=== PATIENT | male | born 1940 | race Caucasian/White ===

== ENCOUNTER 2020-12-25 10:38 | Inpatient (IN) | payer OTHER ==
--- OUTSIDE RECORDS SUMMARY | 2020-12-25 10:41 | XMS REPORT | Continuity of Care Document ---
:1940 Author Organization [facility] t Address [address] [place] [address] Care Team Providers Name Role Phone Jerry ZAMARRIPA, Madiha Primary Care Physician Gus ZAMARRIPA, N Attending Clinician Nirav Jensen Attending Clinician Bibi CHAN Attending Clinician MD GUS N Attending Clinician Unavailable Provider Attending Clinician Unavailable Tommy ZAMARRIPA, G. Attending Clinician Lab, Fam Pob I Attending Clinician Unavailable GUS Admitting Clinician Unavailable MD GUS N Admitting Clinician Unavailable Payers Payer Name Policy Type Policy Effective Date Expiration Date Sour ce Number MEDICAREMEDICARE PART [id number] 2007 Ever [place] A AND 00:00:00 Taoist VilypsagJP240/07/2007- [place] AETNAAETNA [id number] [facility] 00:00:00 Taoist [id number]/ 07/2000-PresentIndemni ty Problems Condition Condition Condition Status Onset Resolution Last Treating Co mments Source Name Details Category Date Date Treatment Clinician Date Osteoarthr Osteoarthr Disease Active 2021-0 [place] [facility] itis of 10-15 [facility] right hip right hip 00:00: st 00 Bleeding Bleeding Disease Active [place] gastric gastric Methodi ulcer ulcer st Colon Colon Disease Active [employer] polyps polyps Methodi st Esophageal Esophageal Disease Active [facility]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 st reaction 00 s to drug codeine DA Active [facility] 10-23 [place] 00:00: [facility] 00 [facility] Family History Family Member Diagnosis Comments Start Date Stop Date Source Natural brother Cancer [facility] ethodi Natural brother Colon cancer [facility] Natural father Heart attack [facility] Social History Social Habit Start Date Stop Date Quantity Comments Source Tobacco use and 2020-10-22 2020-10-22 Never used [facility] ethodist exposure 00:00:00 00:00:00 Alcohol intake 2020-10-22 2020-10-22 [facility]00 non-drinker of alcohol (finding) Sex Ass[birth year] At [birth year] [facility]00 Smoking Status Start Date Stop Date Source Never smoker [facility] t Medications Ordered Filled Start Stop Current Ordering Indication Dosage Frequency Signature Comments Components Source Medication Medication Date Date Medication? Clinician (SIG) Name Name INFLIXIMAB 2020- No Q30D Infuse [place] (REMICADE 10-16 into a Methodi IV) 11:58: 00:[address] 21 :00 catheter every 30 (thirty) days. Next dose 10/15/2020 ascorbic 2020-2020- No 1000mg QD Take 1,000 Elizabeth acid, 10-16-14 mg by Methodi vitamin C, 11:58: 00:[address] (ascorbic 21 :00 daily. acid with sandra hips) 500 MG tablet acetaminoph Yes 650mg Q8H Take 650 [place] en ER 4-14 mg by Method[facility] (Tylenol 8 11:58: mouth st Hour) 650 20 every 8 MG 8 hr (eight) tablet hours as needed for mild pain or moderate pain. multivitami Yes 1{tbl} QD Take 1 [place] with 4-14 tablet by [facility] minerals 11:58: mouth st tablet 20 daily. vitamin E Yes 400U QD Take 400 [place] 400 UNIT 4-14 Units by Methodi capsule 11:58: mouth st 20 daily. methotrexat Yes Q7D Take by Pedro ramirez e 2.5 MG 4-14 mouth once Metho di tablet 11:58: a week. st 19 Takes 4 tablets of 2.5mg Wednesday evening omega Yes 1{capsu QD Take 1 Elizabeth 3-dha-epa-f 4-14 le} capsule by Il aniyah miles oil 11:58: mouth st (FISH OIL) 19 every 1,000 mg morning. (120 mg-180 mg) capsule traMADoL Yes 50mg Q6H Take 50 mg Pedro ramirez (ULTRAM) 50 2-21 by mouth Meth joelle mg tablet 00:00: every 6 st 00 (six) hours as needed. sulfaSALAzi Yes 1500mg Q.5D Take 1,500 Elizabeth ne 2-15 mg by Methodi (AZULFIDINE 00:00: mouth 2 st ) 500 mg 00 (two) tablet times a day. amLODIPine 2020- No TAKE 1 [place] (NORVASC) 5 10-25 TABLET BY Il thodi mg tablet 00:00: 00:[address] 00 :00 EVERY DAY IN THE MORNING rosuvastati 2020- No QD every [place] (CRESTOR) 10-2505 evening. Met hodi 10 MG 00:00: 00:00 st tablet 00 :00 Immunizations Ordered Immunization Filled Immunization Date Status Commen ts Source Name Name [place] COVID-19 MRNA 2020-08-12 Completed [place] VACCINATION 00:00:00 Taoist [place] COVID-19 MRNA 2020-07-22 Completed [place] VACCINATION 00:00:00 Taoist Vital Signs Vital Name Observation Time Observation Value Comments Source Body temperature 2020-10-16 08:00:00 37.5 Sandrine Daryl Tiwari Systolic blood 2020-10-16 07:15:51 130 mm[Hg] Darylto n Taoist pressure Diastolic blood 2020-10-16 07:15:51 60 mm[Hg] [place]ary[place] on Taoist pressure Heart rate 2020-10-16 07:15:51 84 /min Glenn Tiwari Respiratory rate 2020-10-16 07:15:51 19 /min Daryl Tiwari Oxygen saturation in 2020-10-16 07:15:51 91 /min Glenn Tiwari Arterial blood by Pulse oximetry Body height 2020-10-15 06:32:00 170.2 cm Glenn Tiwari Body weight 2020-10-15 06:32:00 88.168 kg Glenn Tiwari BMI 2020-10-15 06:32:00 30.44 kg/m2 Glenn Tiwari Procedures Procedure Date / Time Performed Performing Clinician Sourc e HEMOGLOBIN & HEMATOCRIT 2020-10-16 04:30:00 Dorcas Toney BASIC METABOLIC PANEL 2020-10-16 04:00:00 Dorcas Toney ESTIMATED GFR 2020-10-16 04:00:00 Dorcas Toney XR PELVIS 1 OR 2 VW 2020-10-15 11:04:00 Dorcas Toney POC GLUCOSE 2020-10-15 10:41:00 Dorcas Toney SURGICAL PATHOLOGY 2020-10-15 10:24:00 Dorcas Toney on Taoist REQUEST OR [place] > 1 HOUR 2020-10-15 09:50:00 Dorcas Toney XR PELVIS 1 OR 2 VW 2020-10-15 09:34:00 Dorcas Toney CA AN ELECTIVE 2020-10-15 08:55:28 Pk Jensen ENDOTRACHEAL AIRWAY R ARTHROPLASTY, HIP, TOTAL 2020-10-15 07:40:00 Dorcas Toney TRACHEOSTOMY 2020-10-15 07:40:00 Norm Franklin POC GLUCOSE 2020-10-15 07:14:00 Dorcas Toney ABO/RH 2020-10-15 07:00:00 Dorcas Toney COVID-19 QUALITATIVE PCR 2020-10-10 10:43:00 Dorcas Toney URINE CULTURE 2020-09-24 16:30:00 Dian Mtz Met hodist URINALYSIS SCREEN AND 2020-09-24 16:30:00 Dian Mtz on Taoist MICROSCOPY, WITH REFLEX TO CULTURE ECG PRE/POST OP 2020-09-24 16:03:39 Dian Mtz Met [facility]odist TYPE AND SCREEN 2020-09-24 15:43:00 Dian Mtz Met [facility]odist HEMOGLOBIN A1C 2020-09-24 15:43:00 Dian Mtz Met [facility]odist COMPREHENSIVE METABOLIC 2020-09-24 15:43:00 Dian Mtz Taoist PANEL HC COMPLETE BLD COUNT 2020-09-24 15:43:00 Dian Mtz Taoist W/AUTO DIFF ESTIMATED GFR 2020-09-24 15:43:00 Dian Mtz Met hodist Plan of Care Planned Activity Planned Date Details Comments Source Future Scheduled 2021-02-02 INFLUENZA VACCINE Henry welch Taoist Test 00:00:00 [code = INFLUENZA VACCINE] Future Scheduled 2007 65+ PNEUMOCOCCAL Elizabeth Taoist Test 00:00:00 VACCINE (1 of 1 - PPSV23) [code = 65+ PNEUMOCOCCAL VACCINE (1 of 1 - PPSV23)] Future Scheduled 1992 SHINGLES VACCINES (#1) Noa myles Taoist Test 00:00:00 [code = SHINGLES VACCINES (#1)] Future Scheduled 1960 Hepatitis C screening [facility] Taoist Test 00:00:00 (procedure) [code = 177537405] Encounters Start End Encounter Admission Attending Care Care Encounter Source Date/Time Date/Time Type Type Clinicians Facility Department ID 2020-10-15 2020-10-16 [id number] [place] 00:00:00 00:00:00 [place] [address] 2020-10-10 2020-10-10 [id number] [place] 00:00:00 00:00:00 UGONNA 902 Method i 2020-09-24 2020-09-24 [id number] [employer] [place] 00:00:00 00:00:00 UGONNA 660 Method i 2020-09-06 2020-09-06 Outpatient TOMMY, [facility] [id number] [employer] [place] 00:00:00 00:00:00 NORM 015 Method i 2020-08-12 2020-08-12 Outpatient [facility] [id number] [employer] [place] 00:00:00 00:00:00 308 Method i 2020-07-22 2020-07-22 Outpatient [facility] [id number] [employer] [place] 00:00:00 00:00:00 353 Method i 2020-06-25 2020-06-25 Laboratory Lab, [facility] [id number] 15:55:48 16:17:07 Only Fam Pob I Health [id number] [facility] [id number] Professio [phone] nal 044 [address] One Results Test Description Test Time Test Comments Results Result [facility] e Comments OR [place] > I Hour 2020-11-19 [facility] 14:52:[address] 11/19/2020 2:55 PM CDT EXAMINATI ON: OR [place] > 1 HOURC-arm fluoroscopy was requested in OR. Location: OPC19 - OR 2 Procedure: ANTERIOR TOTAL ARTHROPLASTY, RIGHT HIP Start Time: 0740 End Time: 0950 Fluoro Time: 1 MIN 21 SECS Dose (mGy): 16.27 mGy Tech(s): ACIMPRESSION:Intra operative fluoroscopic images. Radiologist was not present during the examination.Separa te operative report will be issued by the physician performing the procedure.[id number] Surgical pathology request 2020-10-18 09:04:44 Test Item Value Reference Range Interpretation Comme nts Case number (test code = 8534029) [id number] Surgical pathology report (test code = See link below for PDF Lab R eport 4113) Result status (test code = 2847074) This is Final Report for [id number] [facility] 2 [id number] 11:13:30Hm Interface, Radiology Results Incoming - 10/15/2020 11:16 AM CDTFormatting of this note might be di fferent from the original.EXAMINATION: XR PELVIS 1 OR 2 VWCLINICAL HISTORY: Post operativeCOMPARISON: 1 hour earlierTECHNIQUE:Frontal pelvic radiograph is reviewed.IMPRESSION:Interval completion right hip bipolar hemiarthroplasty. Hardware is appropriately positioned. Right pelvic extraperitoneal gas medial to the acetabulum and small amount of postoperative gas surrounding the prosthesis more laterally are again noted.[id number] [id number] 08:55:28Pk Jensen 10/15/2020 9:03 [address] Location: OR Performed by: anesthesiologistAuthorized by: Pk Jensen Urgency: ElectiveDifficult Airway: Yes (See comments) Preoxygenated with 100% O2: Yes C-spine Precautions Maintained Throughout: Yes Mask Ventilation: Not attempt edFinal Airway Type: Endotracheal airwayFinal Endotracheal Airway: ETTCuffed: Yes Technique Used: Awake intubationDevices/Methods Used in Placement: Intubating styletInsertion Site: OralLaryngoscope Blade/Videolaryngoscope Blade Size: 4ETT Size (mm): 7.0Placement Verified by: CO2 detection anddirect visualization Rapid Sequence Induction (RSI): No Modified RSI: No Number of Attempts at Approach: [address] secondary to 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 ENT at bedside in case needed for tracheosstomy. Prepared for nasal awake fiberoptic intubation with topical local anesthetic to nasopharynx and oropharynx. Once appropriately topical anesthetic applied, proceeded to easily pass Glidescopesize 4 with patient under minimal sedation (attempted before even trying nasal fiberoptic). With grade one visualization, patient given propofol bolus prior to passing tube ET tube succesfully under dir ect visualization. Manual ventilation never attempted as patient was awake and breathing spontaneously during procedure.Glenn TiwariCOVID-19 qualitative [id number] 15:28:43 Test Item Value Reference Range Interpretation Comments Interpretation (test Negative results do code = 5025431) not preclude 2019-nCoV infection and should not be used as the sole basis for treatment or other patient management decisions. Negative results must be combined with clinical observations, patient history, and epidemiological information. COVID-19 qualitative Not-Detected Not-Detected PCR result (test code = 32679-0) COVID-19 qualitative See link below for C ase Number: PCR (test code = PDF Lab Report [id number]) Glenn OdonnellAnblkxyrcWXQN-VwF-5 (COVID-19) RNA [Presence] in Respiratory specimen by ARNOL with probe [id number] 15:28:10 Test Item Value Reference Range Interpretation Comments SARS-CoV-2 (COVID-19) RNA Not detected Not-Detected [Presence] in Respiratory specimen by ARNOL with probe detection (test code = 70886-4) ECG Pre/Post [id number] 02:24:08 Test Item Value Reference Range Interpretation Comments Ventricular rate (test 75 code = 253) Atrial rate (test code 75 = 255) CA interval (test code 156 = 266) QRSD interval (test 88 code = 260) QT interval (test code 380 = 264) QTC interval (test code 424 = 265) P axis 1 (test code = 51 267) QRS axis 1 (test code = -12 268) T wave axis (test code 0 = 270) EKG impression (test Normal sinus code = 273) rhythm-Normal ECG-In automated comparison with ECG of 12-APR-2017 09:40,-No significant change was found- lGenn TiwariUrine [id number] 18:19:18 Test Item Value Reference Range Interpretation Comments Urine culture (test SEE COMMENT Bacteriu iram screen code = 6709030) negative. Glenn Tiwari
[2020-12-25 11:38] LABS: Absolute Lymphocytes (CBC) 0.6 K/uL (0.7-4.9); Basophils % 0.2 % (0-1.3); Hematocrit 37.9 % (39.6-49.0); Lymphocytes % 3.7 % (15.3-44.8); MPV 9.4 fL (7.6-11.3); RBC Red Blood Cell Count 4.04 M/uL (4.33-5.43)
[2020-12-25 11:58] LABS: Albumin 3.3 g/dL (3.4-5.0); Bilirubin Direct 0.3 mg/dL (0-0.2); Bilirubin Total 0.8 mg/dL (0.2-1.0); Protein, Total 7.6 g/dL (6.4-8.2)
--- NOTE | 2020-12-25 12:26 | RAD REPORT ---
EXAM DESCRIPTION: RAD - Chest Single View - 12/25/2020 12:21 pm CLINICAL HISTORY: FEVER Chest pain. COMPARISON: CHEST PA AND LAT 2 VIEW dated 12/08/2011 FINDINGS: Portable technique limits examination quality. The lungs are grossly clear. The heart is normal in size. No displaced fractures. IMPRESSION: No acute intrathoracic process suspected.
[2020-12-25 12:38] LABS: Blood Morphology Comment NOT SEEN (NOT SEEN); Platelet Estimate ADEQ; White Blood Cell Scan OK (OK)
--- NOTE | 2020-12-25 12:52 | RAD REPORT ---
EXAM DESCRIPTION: CT - Abdomen Pelvis W Contrast - 12/25/2020 12:29 pm CLINICAL HISTORY: Abdominal pain/fever COMPARISON: none. TECHNIQUE: Computed axial tomography of the abdomen pelvis was obtained. 100 cc Isovue-300 was admin istered intravenously. Oral contrast was not requested which limits evaluation of bowel. All CT scans are performed using dose optimization technique as appropriate and may include automated exposure control or mA/KV adjustment according to patient size. FINDINGS: The liver, spleen, pancreas, adrenal and left kidney appear unremarkable. Small right urmila l cortical and parapelvic cysts. There is no evidence of diverticulitis. The prostate gland is markedly enlarged. Moderate anterior subluxation L5 on S1. Ankylosing spondylitis involves pelvis and spine. The proximal and mid appendix are normal. The distal appendix is dilated and fluid-filled measuring 1 3 millimeters and containing calcification. No stranding within the adjacent fat. The appendix extend s medially and superiorly from the cecum A gallstone is seen. No gallbladder wall thickening IMPRESSION: The distal appendix is dilated and fluid-filled containing calcification. This has the a ppearance of a mucocele. Cholelithiasis without evidence of cholecystitis
[2020-12-25 13:51] LABS: Urine Blood 2+ (Negative); Urine Glucose Negative (Negative); Urine Protein 2+ (Negative); Urine Specific Gravity 1.015 (1.005-1.030); Urine pH 5.5 (5.0-7.0)
--- NOTE | 2020-12-25 14:02 | EDPHYS ---
Physician Documentation [facility] Name: Oleg Marie Age: 80 yrs Sex: Male : 1940 Arrival Date: 12/25/2020 Time: 10:41 Bed 2 Private MD: Emily Edwards C ED Physician Moncho Nj HPI: 12/25 11:45 This 80 yrs old Male presents to ER via Ambulatory with complaints of Fever. rn 11:45 The patient reports fever, that was measured at 102.3 degrees Fahrenheit. Onset: The rn symptoms/episode began/occurred yesterday. Modifying factors: there are no obvious modifying factors. Associated signs and symptoms: Pertinent positives: chills, Pertinent negatives: abdominal pain, chest pain, cough, diarrhea, headache, hemoptysis, runny nose, shortness of breath, swelling, vomiting. Severity of symptoms: At their worst the symptoms were mild in the emergency department the symptoms are unchanged. The patient has not experienced similar symptoms in the past. Sent by Dr. Edwards, for fever of unknown origin, concerned because takes Remicade, patient only complaints of sneezing and hiccups. No chest pain/sob/abd pain/vomiting/diarrhea. COVID vaccinated at beginning of year. . Historical: - Allergies: 11: Tape; tw2 11: Codeine; hyper; tw2 - Home Meds: 11: Fish Oil 1,000 mg oral cap [Active]; sulfasalazine 500 mg Oral tab 1 tab 4 times per tw2 day [Active]; methotrexate sodium 2.5 mg Oral tab 4 tabs once wkly [Active]; remicaid inj, every 6 weeks [Active]; - PMHx: 11: BPH; ankylosing spondylitis; tw2 - PSHx: 11:01 Tonsillectomy; hip replacement, october 2020; tw2 - Immunization history:: Adult Immunizations Client reports receiving the 2nd dose of the Covid vaccine. - Social history:: Smoking status: . - Family history:: not pertinent. - Hospitalizations: : No recent hospitalization is reported. 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 Exam: 11:45 Constitutional: This is a well developed, well nourished patient who is awake, alert, rn and in no acute distress. Head/Face: Normocephalic, atraumatic. Eyes: Periorbital areas with no swelling, redness, or edema. ENT: MMM, no stridor Cardiovascular: Regular rate and rhythm. No pulse deficits. Respiratory: No increased work of breathing, no retractions or nasal flaring. Abdomen/GI: Soft, non-tender Skin: Warm, dry MS/ Extremity: Pulses equal, no cyanosis. Neuro: Awake and alert, GCS 15, oriented to person, place, time, and situation. Cranial nerves II-XII grossly intact. Motor strength 5/5 in all extremities. Sensory grossly intact. Cerebellar exam normal. Normal gait. Vital Signs: 10:55 BP 139 / 56; Pulse 98; Resp 18; Temp 102.3(O); Pulse Ox 95% on R/A; Weight 90.72 kg tw2 (R); Height 5 ft. 7 in. (170.18 cm); 12:04 BP 134 / 54; Pulse 88; Resp 16; Pulse Ox 96% ; sv 13:46 BP 146 / 82; Pulse 84; Resp 15; Temp 102.8(O); Pulse Ox 98% on R/A; hb 14:56 BP 123 / 53; Pulse 80; Resp 15; Temp 101.2(O); Pulse Ox 97% ; hb 10:55 Body Mass Index 31.32 (90.72 kg, 170.18 cm) tw2 MDM: 11:04 Patient medically screened. rn 14:00 Differential diagnosis: viral Infection, bacterial infection, bronchitis, pneumonia rn UTI. Data reviewed: vital signs, nurses notes, lab test result(s), radiologic studies, CT scan, plain films, and as a result, I will admit patient. Counseling: I had a detailed discussion with the patient and/or guardian regarding: the historical points, exam findings, and any diagnostic results supporting the discharge/admit diagnosis, lab results, radiology results, the need for further work-up and treatment in the hospital. Response to treatment: the patient's symptoms have mildly improved after treatment, and as a result, I will admit patient. Admission orders: after a detailed discussion of the patient's condition and case, the admit orders are written by me. ED course: Pt with UTI, 17k WBC, elevated procal, will admit to Dr. Edwards for UTI/fever. . 12/25 11:14 Order name: CBC with Diff 12/25 11:14 Order name: Basic Metabolic Panel 12/25 11:14 Order name: Urine Culture 12/25 11:14 Order name: Urine Microscopic Only 12/25 11:14 Order name: COVID-19 : Document "Date of Symptom Onset" if Symptomatic. 12/25 11:14 Order name: Blood Culture Adult (2) 12/25 11:14 Order name: Procalcitonin 12/25 11:14 Order name: Hepatic Function 12/25 11:14 Order name: Lipase 12/25 11:14 Order name: Flu 12/25 11:30 Order name: [facility] 12/25 11:39 Order name: CBC with Automated Diff; Complete Time: 12:51 [facility] 12/25 11:58 Order name: Basic Metabolic Panel; Complete Time: 12:51 [facility] 12/25 11:58 Order name: Liver (Hepatic) Function; Complete Time: 12:51 [facility] 12/25 11:14 Order name: IV Start; Complete Time: 11:29 12/25 11:14 Order name: XRAY Chest (1 view) 12/25 11:14 Order name: CT Abd/Pelvis - IV Contrast Only 12/25 11:14 Order name: Labs collected and sent; Complete Time: 11:29 12/25 11:58 Order name: Lipase; Complete Time: 12:51 [facility] 12/25 12:10 Order name: Influenza Screen (A ; Complete Time: 12:51 [facility] 12/25 12:14 Order name: Procalcitonin; Complete Time: 12:51 EDTX 12/25 12:25 Order name: SARS-COV-2 RT PCR; Complete Time: 12:51 EDMS 12/25 12:27 Order name: RAD; Complete Time: 12:51 EDMS 12/25 12:39 Order name: CBC Smear Scan; Complete Time: 12:51 EDMS 12/25 12:52 Order name: CT; Complete Time: 13:11 EDMS 12/25 13:52 Order name: Urine Dipstick-Ancillary; Complete Time: 13:59 EDMS 12/25 14:52 Order name: Urine Microscopic Only EDMS Administered Medications: 13:50 Drug: Tylenol 1000 mg Route: PO; hb 14:40 Follow up: Response: No adverse reaction hb 14:40 Drug: Rocephin (cefTRIAXone) 1 grams Route: IV; Rate: calculated rate; Site: left hb antecubital; 14:41 Follow up: IV Status: Completed infusion; IV Intake: 10ml hb 15:00 Follow up: Response: No adverse reaction hb Disposition: 12/25/20 14:02 Hospitalization ordered by Emily Edwarsd for Inpatient Admission. Preliminary diagnosis are Urinary tract infection, site not specified, Fever, unspecified. - Bed requested for Telemetry/MedSurg (Inpatient). - Status is Inpatient Admission. hb - Condition is Stable. - Problem is new. - Symptoms have improved. Signatures: Dispatcher [employer] Keri Lindsay RN RN dw Nieto, Roman, MD MD rn Baxter, Heather, RN RN hb Wise, Tara, RN RN tw2 Corrections: (The following items were deleted from the chart) 14:39 14:02 Hospitalization Ordered by Emily Edwards MD for Inpatient Admission. Preliminary dw diagnosis is Urinary tract infection, site not specified; Fever, unspecified. Bed requested for Telemetry/MedSurg (Inpatient). Status is Inpatient Admission. Condition is Stable. Problem is new. Symptoms have improved. rn 15:30 14:39 12/25/2020 14:02 Hospitalization Ordered by Emily Edwards MD for Inpatient Admission. hb Preliminary diagnosis is Urinary tract infection, site not specified; Fever, unspecified. Bed requested for Telemetry/MedSurg (Inpatient). Status is Inpatient Admission. Condition is Stable. Problem is new. Symptoms have improved. dw
--- NOTE | 2020-12-25 14:02 | ER ---
Nurse's Notes [facility] Name: Oleg Marie Age: 80 yrs Sex: Male : 1940 Arrival Date: 12/25/2020 Time: 10:41 Bed 2 Private MD: Emily Licea C Diagnosis: Urinary tract infection, site not specified;Fever, unspecified Presentation: 12/25 10:55 Chief complaint: Patient states: Dr. Licea sent me here. He said he wanted us to come tw2 over here and do some tests. I have sneezing and hiccups every 4 seconds since yesterday and all last night. i went to see dr. licea early in the weak with foggy head and headache. He did a CT scan and now he has this fever per spouse. Coronavirus screen: fever, Client presents with at least one sign or symptom that may indicate coronavirus-19. Standard/surgical mask placed on the client. Provider contacted for isolation considerations. Ebola Screen: Patient denies travel to an Ebola-affected area in the 21 days before illness onset. Initial Sepsis Screen: Does the patient meet any 2 criteria? No. Patient's initial sepsis screen is negative. Does the patient have a suspected source of infection? No. Patient's initial sepsis screen is negative. Risk Assessment: Do you want to hurt yourself or someone else? Patient reports no desire to harm self or others. Onset of symptoms was December 25, 2020. 10:55 Method Of Arrival: Ambulatory tw2 10:55 Acuity: REJI 3 tw2 Triage Assessment: 11:01 General: Appears in no apparent distress. well groomed, Behavior is calm, cooperative, tw2 appropriate for age. Pain: Denies pain. Historical: - Allergies: 11: Tape; tw2 11: Codeine; hyper; tw2 - Home Meds: 11: Fish Oil 1,000 mg oral cap [Active]; sulfasalazine 500 mg Oral tab 1 tab 4 times per tw2 day [Active]; methotrexate sodium 2.5 mg Oral tab 4 tabs once wkly [Active]; remicaid inj, every 6 weeks [Active]; - PMHx: 11: BPH; ankylosing spondylitis; tw2 - PSHx: 11: Tonsillectomy; hip replacement, october 2020; tw2 - Immunization history:: Adult Immunizations Client reports receiving the 2nd dose of the Covid vaccine. - Social history:: Smoking status: . - Family history:: not pertinent. - Hospitalizations: : No recent hospitalization is reported. Screenin:29 Abuse screen: Denies threats or abuse. Denies injuries from another. Nutritional hb screening: No deficits noted. Tuberculosis screening: No symptoms or risk factors identified. Fall Risk None identified. Assessment: 11:29 General: Appears in no apparent distress. Behavior is calm, cooperative. Pain: Denies hb pain. Neuro: Level of Consciousness is awake, alert, obeys commands, Oriented to person, place, time, situation. Cardiovascular: Patient's skin is warm and dry. Rhythm is regular. Respiratory: Respiratory effort is even, unlabored, Respiratory pattern is regular, symmetrical. GI: No signs and/or symptoms were reported involving the gastrointestinal system. : No signs and/or symptoms were reported regarding the genitourinary system. EENT: No signs and/or symptoms were reported regarding the EENT system. Derm: Skin is pink, warm \\T\\ dry. Musculoskeletal: No signs and/or symptoms reported regarding the musculoskeletal system. 12:38 Reassessment: Patient appears in no apparent distress at this time. Patient and/or hb family updated on plan of care and expected duration. Pain level reassessed. Patient is alert, oriented x 3, equal unlabored respirations, skin warm/dry/pink. 13:50 Reassessment: Patient appears in no apparent distress at this time. Patient and/or hb family updated on plan of care and expected duration. Pain level reassessed. Patient is alert, oriented x 3, equal unlabored respirations, skin warm/dry/pink. 14:30 Reassessment: Patient appears in no apparent distress at this time. Patient and/or hb family updated on plan of care and expected duration. Pain level reassessed. Patient is alert, oriented x 3, equal unlabored respirations, skin warm/dry/pink. 14:56 Reassessment: Attempted to call report to floor, receiving nurse unavailable at this hb time. Vital Signs: 10:55 BP 139 / 56; Pulse 98; Resp 18; Temp 102.3(O); Pulse Ox 95% on R/A; Weight 90.72 kg tw2 (R); Height 5 ft. 7 in. (170.18 cm); 12:04 BP 134 / 54; Pulse 88; Resp 16; Pulse Ox 96% ; sv 13:46 BP 146 / 82; Pulse 84; Resp 15; Temp 102.8(O); Pulse Ox 98% on R/A; hb 14:56 BP 123 / 53; Pulse 80; Resp 15; Temp 101.2(O); Pulse Ox 97% ; hb 10:55 Body Mass Index 31.32 (90.72 kg, 170.18 cm) tw2 ED Course: 10:41 Patient arrived in ED. mr 10:41 Emily Licea MD is Private Physician. mr 10:57 Triage completed. tw2 11:01 Arm band placed on. tw2 11:03 Moncho Nj MD is Attending Physician. rn 11:24 Inserted saline lock: 20 gauge in left antecubital area, using aseptic technique. Blood hb collected. 11:29 Patient has correct armband on for positive identification. Bed in low position. Call hb light in reach. 11:47 Pillow given. Pulse ox on. NIBP on. mh5 11:47 CORONAVIRUS Sent. mh5 11:47 Flu Sent. mh5 11:47 Initial lab(s) drawn, by ED staff, sent to lab. COVID swab sent to lab. Flu and/or RSV mh5 swab sent to lab. 11:57 Kenisha Alba, BOWEN is Primary Nurse. hb 12:03 CBC with Diff Sent. sv 12:03 Basic Metabolic Panel Sent. sv 12:03 COVID-19 : Document "Date of Symptom Onset" if Symptomatic. Sent. sv 12:03 Blood Culture Adult (2) Sent. sv 12:04 Awaiting lab results. sv 12:04 Procalcitonin Sent. sv 12:04 Lipase Sent. sv 12:04 Hepatic Function Sent. sv 14:01 Emily Licea MD is Hospitalizing Provider. rn 14:59 No provider procedures requiring assistance completed. Patient admitted, IV remains in hb place. Administered Medications: 13:50 Drug: Tylenol 1000 mg Route: PO; hb 14:40 Follow up: Response: No adverse reaction hb 14:40 Drug: Rocephin (cefTRIAXone) 1 grams Route: IV; Rate: calculated rate; Site: left hb antecubital; 14:41 Follow up: IV Status: Completed infusion; IV Intake: 10ml hb 15:00 Follow up: Response: No adverse reaction hb Intake: 14:41 IV: 10ml; Total: 10ml. hb Outcome: 14:02 Decision to Hospitalize by Provider. rn 14:59 Admitted to Med/surg hb 14:59 Condition: stable 14:59 Instructed on the need for admit, Demonstrated understanding of instructions. 15:30 Patient left the ED. hb Signatures: Melissa Stern RN RN Sarah Contreras mr NjMoncho palencia MD MD rn Smirch, Shelby, RN RN Kenisha Alba RN RN Carmel Whyte RN RN [facility] Minerva Jamison [facility] Corrections: (The following items were deleted from the chart) 13:50 13:46 Temp 102.8F Oral; hb
[2020-12-25] MEDS ORDERED: ACETAMINOPHEN 500 MG TAB ONE (14:08)
[2020-12-25] MEDS ORDERED: CEFTRIAXONE/SWI 1gm 1 GM/10 ML SYR ONE (14:50)
[2020-12-25 14:52] LABS: Urine Bacteria <20 /HPF (NONE SEEN); Urine RBC <5 /HPF (NONE SEEN)
[2020-12-25] MEDS ORDERED: ACETAMINOPHEN 500 MG TAB PO PRN (15:32)
[2020-12-25] MEDS ORDERED: ONDANSETRON 4 MG/2 ML VIAL IV PRN (15:32)
[2020-12-25 15:35] VITALS: BMI 31.3
[2020-12-25] MEDS: NA CHLORIDE 0.9% 1,000 ML IV SCH (15:55)
[2020-12-25] MEDS: CEFTRIAXONE/SWI 1gm 1 GM/10 ML SYR IVP SCH (20:09)
[2020-12-26] MEDS: NA CHLORIDE 0.9% 1,000 ML IV SCH ×2 (01:59→07:47)
--- NOTE | 2020-12-26 02:03 | HP ---
Date of Admission: 12/25/2020 Chief Complaint: Fever. History Of Present Illness: Mr. Marie is a 80-year-old very pleasant male patient who came into [facility] today with his with complaints of fever that started yesterday. After the patient was evalua mago at office, decision was made to get him evaluated in the emergency room. I did call the ER physi chloe and these details were discussed with him and evaluation was requested. After all the evaluatio n completed, all the test results reviewed with ER physician and decision was made to admit him to [facility] with urinary tract infection. The patient denies any rash. No hematuria. No dysuria. D enies any abdominal pain, nausea, vomiting. No cough, cold, congestion. No expectoration. No sore throat. No headache. Two days ago, he came into office with some fullness in head and vague headach e type of complaints and CAT scan of the head was done at that time, which showed some vague area of abnormality in the left frontoparietal region. Not sure whether it is artifact or subacute stroke an d we were in process of scheduling MRI on outpatient basis for further evaluation and meanwhile 2 day s ago, he was complaining of trouble emptying the bladder that symptom has been going on lately so he was started on Flomax for that reason. Allergies: TO CODEINE. Medications: Amlodipine 5 mg daily in morning, tamsulosin 0.4 mg daily, sulfasalazine, rosuvastatin 10 mg daily in the evening, methotrexate, Remicade, and fluticasone nasal spray. Review of Systems: Constitutional: As mentioned above. All other systems reviewed and negative. Past Medical History: Hypertension, hyperlipidemia, diverticulosis, renal cyst, benign prostatic hyp ertrophy, ankylosing spondylitis, melanoma and anemia, unspecified. Past Surgical History: Tonsillectomy, wisdom teeth removal, shoulder surgery on the right shoulder, right hip replacement surgery in November 2020 and at that time he had nasal intubation because of his cer vical spine disorder and back surgery in December 2017. Family History: Father had an NH. Mother had Alzheimer disease and heart disease. Brother had colo n cancer and diabetes. Social History: Negative for smoking, alcohol use. Physical Examination: Vital Signs: At office, blood pressure 146/71, pulse 98, temperature 100.2 degree Fahrenheit, respir atory rate 18. Weight 201.4 pounds, height 67 inches. General: Awake, alert, oriented, not in distress. HEENT: Head atraumatic, normocephalic. Conjunctivae nonerythematous. Sclerae white. Mouth, no thr ush or edema noted. Ears/Nose, no mass, lesion, discharge noted. Neck: Supple. No JVD, lymph nodes, bruit, thyromegaly noted. Lungs: Bilateral good equal air entry. Clear to auscultation. No rhonchi. No rales. Heart: Normal heart sounds, no murmur or gallop. Abdomen: Soft, bowel sounds normal. No guarding, rigidity, tenderness, mass, hepatosplenomegaly, dis tention, or bruit noted. Extremities: No leg edema. No calf tenderness. Skin: No rash, ulcer, cellulitis. Lymphatics: No lymph node enlargement in neck, supraclavicular, infraclavicular region. Neuro: No focal neurological deficit. Chest: Unremarkable. External Genitalia: Deferred. Rectal: Deferred. Laboratory Data: CAT scan of abdomen and pelvis done in the emergency room was unremarkable. Chest x-ray was negative for any acute thoracic changes. White count 17, hemoglobin 12.2, platelets of 129 . Sodium 133, potassium 4, chloride 101, bicarb 30, BUN 19, creatinine 1.06, glucose 121. Liver fun ction tests unremarkable. Procalcitonin 1.50. Urinalysis positive for nitrite, 2+ blood, wbc 5-10, and 2+ protein. COVID-19 test negative. Impression: 1.Urinary tract infection. 2.Rule out sepsis. 3.Anemia, unspecified. 4.Thrombocytopenia. 5.Hypertension. 6.Hyperlipidemia. 7.Diverticulosis. 8.Ankylosing spondylitis. 9.Benign prostatic hypertrophy. Plan: Admit patient to hospital for further evaluation and management of this problem. The patient is appropriate for inpatient and is expected to spend 2 midnights in hospital. We will go ahead and continue home medications per order. Follow up on culture results and empiric antibiotic will be sta rted, ceftriaxone and final decision regarding choice of antibiotic will depend on culture results. Home medications will be continued per order. Details and plan of treatment discussed with the patie nt. We will use Lovenox for DVT prophylaxis. KEN/MODL Voice ID: [id number]
[2020-12-26 03:43] LABS: Absolute Lymphocytes (CBC) 0.5 K/uL (0.7-4.9); Basophils % 0.2 % (0-1.3); Hematocrit 33.5 % (39.6-49.0); Lymphocytes % 5.3 % (15.3-44.8); MPV 9.3 fL (7.6-11.3); RBC Red Blood Cell Count 3.58 M/uL (4.33-5.43)
[2020-12-26 03:59] LABS: Potassium 3.7 mmol/L (3.5-5.1)
[2020-12-26] MEDS: CEFTRIAXONE/SWI 1gm 1 GM/10 ML SYR IVP SCH ×2 (07:46→20:49)
[2020-12-26] MEDS: TAMSULOSIN 0.4 MG SR CAP PO SCH (07:46)
[2020-12-26] MEDS: PROMETHAZINE INJ 25 MG/ML AMP IV SCH ×3 (07:46→20:49)
[2020-12-26] MEDS: ENOXAPARIN 40 MG/0.4 ML SQ SCH (07:47)
[2020-12-26 07:51] VITALS: O2SAT 93
[2020-12-26] MEDS: SULFASALAZINE 500 MG E.C. TAB PO SCH ×2 (09:00→16:00)
--- NOTE | 2020-12-26 10:00 | RAD REPORT ---
EXAM DESCRIPTION: MRI - Brain Wo Cont - 12/26/2020 8:56 am CLINICAL HISTORY: abnormal CT head Headache, drowsiness COMPARISON: Head Brain Wo Cont dated 12/23/2020 TECHNIQUE: Multi-sequence, multiplanar MR imaging of the brain was performed without contrast. FINDINGS: No intracranial hemorrhage, hydrocephalus or extra-axial fluid collections. Moderate brain atrophy. Moderate areas of T2 and FLAIR hyperintensity in the periventricular and deep white matter most likely representing chronic microvascular ischemia. No edema or shift of midline structures. No findings to suspect brain mass. DWI is negative for acute CVA. No evidence of subacute or chronic CVA seen. Midline structures are normally formed. Trace right mastoid effusion. The paranasal sinuses and mastoids are otherwise clear. IMPRESSION: No evidence of acute, subacute or chronic CVA seen. Moderate chronic microvascular ischemic changes are seen the periventricular and deep white matter. No acute or aggressive finding is present. Trace right mastoid effusion.
[2020-12-27] MEDS: NA CHLORIDE 0.9% 1,000 ML IV SCH (06:11)
[2020-12-27] MEDS: TAMSULOSIN 0.4 MG SR CAP PO SCH (08:24)
[2020-12-27] MEDS: SULFASALAZINE 500 MG E.C. TAB PO SCH (08:24)
[2020-12-27] MEDS: CEFTRIAXONE/SWI 1gm 1 GM/10 ML SYR IVP SCH (08:24)
[2020-12-27] MEDS: ENOXAPARIN 40 MG/0.4 ML SQ SCH (08:24)
[2020-12-27] MEDS: PROMETHAZINE INJ 25 MG/ML AMP IV SCH (08:25)
[2020-12-27 12:31] VITALS: BP 121/64; TEMP 98.4
--- NOTE | 2020-12-27 15:37 | PN ---
Date of Progress Note: 12/26/2020 Subjective: The patient was seen this morning for followup. No new complaints or problems reported by him. Overall, he feels better today than yesterday. Objective: Vital Signs: Reviewed. HEENT: Unremarkable. Lungs: Clear to auscultation. Heart: Sounds normal. Abdomen: Soft. Bowel sounds normal. No guarding, rigidity, tenderness, distention. Extremities: No leg edema. Laboratory Data: White count 9.1, hemoglobin 10.7, platelets 105. Sodium 136, potassium 3.7, chlori de 103, bicarb 28, BUN 18, creatinine 0.86, glucose 117. Impression: 1.Acute pyelonephritis. 2.Anemia, unspecified. 3.Hypertension. Plan: We will go ahead and continue current antibiotics, ceftriaxone. Blood cultures negative. Uri ne culture pending. By tomorrow, hopefully we should have the report on the culture results and then we will decide about possible discharge to go home tomorrow with culture specific antibiotics. KEN/MODL Voice ID: [id number] Report ID: [id number]
--- NOTE | 2020-12-28 01:31 | DS ---
Date of Discharge: 12/27/2020 Disposition: Discharged to go home. Physical Examination: HEENT: Unremarkable. Lungs: Clear to auscultation. Heart: Sounds normal. Abdomen: Soft. Bowel sounds normal. No guarding, rigidity, tenderness, distention. Extremities: No leg edema. Laboratory Data: Upon admission, white count 17, hemoglobin 12.2, platelets 129. Yesterday, white c ount 9.1, hemoglobin 10.7, platelets 105. Upon admission, sodium 133, potassium 4, chloride 101, bic arb 30, BUN 19, creatinine 1.06, procalcitonin 1.50. Yesterday, sodium 136, potassium 3.7, chloride 103, bicarb 28, BUN 18, creatinine 0.86, glucose 117. Urine culture grew E coli. It is sensitive to ceftriaxone that the patient received during this hospital stay. It is also sensitive to Levaquin. Hospital Course: This is a 80-year-old very pleasant male patient, who came into office with complai nts of fever and after he was evaluated, he was admitted to the hospital. The patient also started t o have hiccups along with fever. After I evaluated him at the office, [facility] and further evaluation in the emergency room revealed presence of urinary tract infection . His COVID-19 test was negative. CAT scan of the abdomen and pelvis did not show any acute intraab dominal changes. Chest x-ray was unremarkable. The patient was admitted to the hospital, IV antibio tic and IV fluid was started, and his condition overall improved very well. Recently 2 days prior to this hospital admission, he had outpatient CAT scan of the brain done, which raised the possibility of questionable left frontoparietal region hypodensity area and radiologist was not sure whether this was subacute stroke or not. An MRI of the brain was done yesterday without contrast and that came b ack unremarkable, no evidence of stroke, and details were discussed with the patient. The patient al so had hiccups, which was treated with IV Phenergan and today he reported that his hiccups still pres ent, but overall it is much better than before. Discharge Diagnoses: 1.Acute pyelonephritis. 2.Hiccups. 3.Anemia, unspecified. 4.Thrombocytopenia. 5.Hypertension. 6.Hyperlipidemia. 7.Diverticulosis. 8.Ankylosing spondylitis. 9.Benign prostatic hypertrophy. Discharge Medications And Instructions: 1.Continue prior home medications. 2.Take finasteride 5 mg p.o. daily. 3.Levofloxacin 500 mg daily for 10 days. 4.Phenergan 25 mg 3 times a day as needed for hiccups. 5.Follow up at my office next week on , January 02, 2021 at 10 a.m. KEN/MODL Voice ID: [id number] Report ID: [id number]
== END 2020-12-27 13:13 | disposition home or self-care (01) | DRG 690 ==
LOC: ER 10:38 → 4TH 14:04
PROVIDERS: ADMIT Internal Medicine; ATTEND Internal Medicine
DX: N10 Acute pyelonephritis (principal); B96.20 Unspecified Escherichia coli [E. coli] as the cause of diseases classified elsewhere; R06.6 Hiccough; D64.9 Anemia, unspecified; D69.6 Thrombocytopenia, unspecified; I10 Essential (primary) hypertension; E78.5 Hyperlipidemia, unspecified; K57.90 Diverticulosis of intestine, part unspecified, without perforation or abscess without bleeding; M45.9 Ankylosing spondylitis of unspecified sites in spine; N40.0 Benign prostatic hyperplasia without lower urinary tract symptoms; Z20.822 Contact with and (suspected) exposure to COVID-19
CPT/HCPCS: 36415; 70450; 70551; 71045; 74177; 80048; 80076; 81003; 81015; 83690; 84145; 85025; 87040; 87077; 87086; 87088; 87186; 87804; 96374; 99285; J0696; J1650; J2550; J7030; Q9967; U0003

== ENCOUNTER 2021-01-20 10:22 | Emergency (ER) | payer OTHER ==
--- OUTSIDE RECORDS SUMMARY | 2021-01-20 10:25 | XMS REPORT | Continuity of Care Document ---
:1940 Author Organization [facility] t Address [address] [place] [address] Care Team Providers Name Role Phone Jerry [...] Expiration Date Sour ce Number MEDICAREMEDICARE PART [id number] 2007 Ever sanabria A AND 00:00:00 [facility] [id number] 2007- [facility] TXMedicare AETNAAETNA [id number] 2000 [facility] 00:00:00 [facility] [id number]/ 07/2000-PresentIndemni ty Problems Condition Condition Condition Status Onset Resolution Last Treating Co mments Source Name Details Category Date Date Treatment Clinician Date Osteoarthr Osteoarthr Disease Active [place] [facility] 4-13 [facility] right hip right hip 00:00: st 00 Bleeding Bleeding Disease Active [place] on gastric gastric [facility] ulcer ulcer st Colon Colon Disease Active [place] polyps polyps Methodi st 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 st reaction 00 s to drug codeine DA Active [place] [facility] 10-23 [place] 00:[facility]: [facility] 00 dic [facility] Family History Family Member Diagnosis Comments Start Date Stop Date Source [facility] Colon [facility] Natural father Heart attack [facility] Social History Social Habit Start Date Stop Date Quantity Comments Source Tobacco use and 2020-10-22 2020-10-22 Never used [facility] ethodist exposure 00:00:00 00:00:00 Alcohol intake 2020-10-22 2020-10-22 [facility]:00 non-drinker of alcohol (finding) Sex Assigned At [birth year] [facility] 00:[facility]:00 Smoking Status Start Date Stop Date Source Never smoker [facility] t Medications Ordered Filled Start Stop Current Ordering Indication Dosage Frequency Signature Comments Components Source Medication Medication Date Date Medication? Clinician (SIG) Name Name INFLIXIMAB 2020- No Q30D Infuse [place] (REMICADE 10-16 into a Method[facility] IV) 11:58: 00:[address] 21 :00 catheter every 30 (thirty) days. Next dose 10/15/2020 ascorbic 2020- No 1000mg QD Take 1,000 Elizabeth acid, [...] 1 Elizabeth 3-dha-epa-f 4-14 le} capsule by [place] an[place]ah miles oil 11:58: mouth st (FISH [...] [place] (NORVASC) 5 10-25 TABLET BY [place] thodi mg tablet 00:00: 00:[address] 00 :00 EVERY DAY IN THE MORNING rosuvastati 2020- No QD every [place] (CRESTOR) 10-25 evening. Met hodi 10 MG 00:00: 00:00 st tablet 00 :00 Immunizations Ordered Immunization Filled Immunization Date Status Commen ts Source Name Name [employer] COVID-19 MRNA 2020-08-12 Completed [place] VACC[facility] 00:00:00 [facility] [employer] COVID-19 MRNA 2020-07-22 Completed [place] VACCINATION 00:00:00 [facility] Vital Signs Vital Name Observation Time Observation Value Comments Source Body temperature 2020-10-16 08:00:00 37.5 Sandrine Daryl Tiwari Systolic blood 2020-10-16 07:15:51 130 mm[Hg] Henry n [facility] pressure Diastolic blood 2020-10-16 07:15:51 60 mm[Hg] Darylt on [facility] pressure Heart rate 2020-10-16 07:15:51 84 /min [...] SURGICAL PATHOLOGY 2020-10-15 10:24:00 Dorcas Toney on [facility] REQUEST OR [place] > 1 HOUR 2020-10-15 09:50:00 Dorcas Toney XR PELVIS 1 OR 2 VW 2020-10-15 09:34:00 Dorcas Toney SD AN ELECTIVE 2020-10-15 08:55:28 Pk Jensen ENDOTRACHEAL AIRWAY R ARTHROPLASTY, HIP, TOTAL 2020-10-15 07:40:00 Dorcas Toney TRACHEOSTOMY 2020-10-15 07:40:00 Norm Franklin POC GLUCOSE 2020-10-15 07:14:00 Dorcas Toney ABO/RH 2020-10-15 07:00:00 Dorcas Toney COVID-19 QUALITATIVE 2020-10-10 10:43:00 Dorcas Toney RT-PCR URINE CULTURE 2020-09-24 16:30:00 Dian Mtz [facility] URINALYSIS SCREEN AND 2020-09-24 16:30:00 Dian Mtz on [facility] MICROSCOPY, WITH REFLEX TO CULTURE ECG PRE/POST OP 2020-09-24 16:03:39 Dian Mtz [facility] TYPE AND SCREEN 2020-09-24 15:43:00 Dian Mtz [facility] HEMOGLOBIN A1C 2020-09-24 15:43:00 Dian Mtz [facility] COMPREHENSIVE METABOLIC 2020-09-24 15:43:00 Dian Mtz PANEL HC COMPLETE BLD COUNT 2020-09-24 15:43:00 Dian Mtz on [facility] W/AUTO DIFF ESTIMATED GFR 2020-09-24 15:43:00 Dian Mtz Met hodsaul Plan of Care Planned Activity Planned Date Details Comments Source Future Scheduled 2021-02-02 INFLUENZA VACCINE Henry welch [facility] Test 00:00:00 [code = INFLUENZA VACCINE] Future Scheduled 2007 65+ PNEUMOCOCCAL Glenn [facility] Test 00:00:00 VACCINE (1 of 1 - PPSV23) [code = 65+ PNEUMOCOCCAL VACCINE (1 of 1 - PPSV23)] Future Scheduled 1992 SHINGLES VACCINES (#1) Noa myles [facility] Test 00:00:00 [code = SHINGLES VACCINES (#1)] Future Scheduled 1960 Hepatitis C screening [facility] Test 00:00:00 (procedure) [code = 914090998] Encounters Start End Encounter Admission Attending Care Care Encounter Source Date/Time Date/Time Type Type Clinicians Facility Department ID 2020-10-15 2020-10-16 [id number] [place] 00:00:00 00:00:00 UGONNA 316 Method i 2020-10-10 2020-10-10 [facility] [id number] [place] 00:00:00 00:00:00 UGONNA 902 Method i 2020-09-24 2020-09-24 Outpatient [facility] [id number] [place] 00:00:00 00:00:00 UGONNA 660 Method i 2020-09-06 2020-09-06 Outpatient TOMMY, [facility] [id number] [place] 00:00:00 00:00:00 NORM 015 Method i 2020-08-12 2020-08-12 Outpatient [facility] [id number] [place] 00:00:00 00:00:00 308 Method i 2020-07-22 2020-07-22 Outpatient [facility] [id number] [place] 00:00:00 00:00:00 353 Method i 2020-06-25 2020-06-25 Laboratory Lab, [facility] [id number] 15:55:48 16:17:07 Only Fam Pob I Health [id number] [place] [id number] Professio [id number] nal 0[address] One Results Test Description Test Time Test Comments Results Result [facility] e Comments OR [place] > I Hour 2020-11-19 [facility] 14:52:[address] 11/19/2020 2:55 [...] Comme nts Case number (test code = 4141382) [id number] Surgical pathology report (test code = See link below for PDF Lab R eport 2258) Result status (test code = 4098839) This is Final Report for [id number] [facility] Or 2 [id number] 11:13:30Hm Interface, Radiology Results - 10/15/2020 11:16 AM CDTFormatting of this note might be di fferent from the original.EXAMINATION: XR PELVIS 1 OR 2 VWCLINICAL HISTORY: Post operativeCOMPARISON: 1 hour earlierTECHNIQUE:Frontal pelvic radiograph is reviewed.IMPRESSION:Interval completion right hip bipolar hemiarthroplasty. Hardware is appropriately positioned. Right pelvic extraperitoneal gas medial to the acetabulum and small amount of postoperative gas surrounding the prosthesis more laterally are again noted.[id number] [id number] 08:55:28Pk Jensen 10/15/2020 9:03 [address] Location: OR [...] and breathing spontaneously during procedure.Glenn TiwariCOVID-19 qualitative [id number] 15:28:43 Test Item Value Reference Range Interpretation Comments Interpretation (test Negative results do code = 7803834) not preclude 2019-nCoV infection and should not be used as the sole basis for treatment or other patient management decisions. Negative results must be combined with clinical observations, patient history, and epidemiological information. COVID-19 qualitative Not-Detected Not-Detected RT-PCR result (test code = 50982-2) COVID-19 qualitative See link below for C ase Number: RT-PCR (test code = PDF Lab Report [id number]) Glenn OdonnellGsartgnrvNBVH-KiK-4 (COVID-19) RNA [Presence] in Respiratory specimen by ARNOL with probe [id number] 15:28:10 Test Item Value Reference Range Interpretation Comments SARS-CoV-2 (COVID-19) RNA Not detected Not-Detected [Presence] in Respiratory specimen by ARNOL with probe detection (test code = 23395-8) ECG Pre/Post [id number] 02:24:08 Test Item Value Reference Range Interpretation Comments Ventricular rate (test 75 code = 253) Atrial rate (test code 75 = 255) SD interval (test code 156 = 266) QRSD [...] of 12-APR-2017 09:40,-No significant change was found- Glenn TiwariUrine [id number] 18:19:18 Test Item Value Reference Range Interpretation Comments Urine culture (test SEE COMMENT Bacteriu iram screen code = 8554001) negative. Glenn Tiwari
[2021-01-20 13:59] LABS: Urine Blood 3+ (Negative); Urine Glucose Negative (Negative); Urine Protein 3+ (Negative); Urine Specific Gravity 1.025 (1.005-1.030); Urine pH 5.5 (5.0-7.0)
[2021-01-20 14:53] LABS: Urine Bacteria >50 /HPF (NONE SEEN); Urine RBC >50 /HPF (NONE SEEN)
[2021-01-20 14:54] LABS: Urine Mucus 2+ /HPF (NONE SEEN)
--- NOTE | 2021-01-20 15:03 | EDPHYS ---
Physician Documentation [facility] Name: Oleg Marie Age: 80 yrs Sex: Male : 1940 Arrival Date: 01/20/2021 Time: 10:25 Bed 13 Private MD: Emily Edwards C ED Physician Gabino Echavarria HPI: 01/20 15:03 This 80 yrs old Male presents to ER via Ambulatory with complaints of Urinary jr8 Frequency. 15:03 The patient presents with urinary symptoms, dysuria. Onset: The symptoms/episode jr8 began/occurred gradually, 2 day(s) ago. Modifying factors: The symptoms are alleviated by nothing, the symptoms are aggravated by urinating. Associated signs and symptoms: Pertinent positives: dysuria, fever. Severity of symptoms: At their worst the symptoms were mild, in the emergency department the symptoms are unchanged. The patient has experienced a previous episode. The patient has not recently seen a physician. 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 - Social history:: Smoking status: Patient denies any tobacco usage or history of. ROS: 15:03 Cardiovascular: Negative for chest pain, palpitations, and edema, Respiratory: Negative jr8 for shortness of breath, cough, wheezing, and pleuritic chest pain, Abdomen/GI: Negative for abdominal pain, nausea, vomiting, diarrhea, and constipation, Back: Negative for injury and pain, MS/Extremity: Negative for injury and deformity, Skin: Negative for injury, rash, and discoloration, Neuro: Negative for headache, weakness, numbness, tingling, and seizure. 15:03 Constitutional: Positive for fever. 15:03 : Positive for urinary symptoms. 15:03 All other systems are negative. Exam: 15:03 Constitutional: This is a well developed, well nourished patient who is awake, alert, jr8 and in no acute distress. Cardiovascular: Regular rate and rhythm with a normal S1 and S2. No gallops, murmurs, or rubs. Normal PMI, no JVD. No pulse deficits. Respiratory: Lungs have equal breath sounds bilaterally, clear to auscultation and percussion. No rales, rhonchi or wheezes noted. No increased work of breathing, no retractions or nasal flaring. Abdomen/GI: Soft, non-tender, with normal bowel sounds. No distension or tympany. No guarding or rebound. No evidence of tenderness throughout. Back: No spinal tenderness. No costovertebral tenderness. Full range of motion. Skin: Warm, dry with normal turgor. Normal color with no rashes, no lesions, and no evidence of cellulitis. MS/ Extremity: Pulses equal, no cyanosis. Neurovascular intact. Full, normal range of motion. Neuro: Awake and alert, GCS 15, oriented to person, place, time, and situation. Cranial nerves II-XII grossly intact. Motor strength 5/5 in all extremities. Sensory grossly intact. Vital Signs: 11:20 BP 127 / 69; Pulse 88; Resp 18 S; Temp 98.7(O); Pulse Ox 97% on R/A; Weight 83.01 kg aa5 (R); Height 5 ft. 7 in. (170.18 cm) (R); Pain 0/10; 11:20 Body Mass Index 28.66 (83.01 kg, 170.18 cm) aa5 MDM: 13:43 Patient medically screened. jr8 14:59 Data reviewed: vital signs, nurses notes, lab test result(s). Data interpreted: Pulse jr8 oximetry: on room air is 97 %. Interpretation: normal. Counseling: I had a detailed discussion with the patient and/or guardian regarding: the historical points, exam findings, and any diagnostic results supporting the discharge/admit diagnosis, lab results, the need for outpatient follow up, a family practitioner, to return to the emergency department if symptoms worsen or persist or if there are any questions or concerns that arise at home. ED course: Patient hemodynamically stable. No fever. Looked up previous sensitivity report from last UTI. Will put on macrobid for now. Return precautions given . 01/20 13:39 Order name: Urine Microscopic Only; Complete Time: 14:56 jr8 01/20 13:57 Order name: Urine Dipstick-Ancillary; Complete Time: 14:45 EDMS 01/20 13:39 Order name: Urine Dipstick-Ancillary (obtain specimen); Complete Time: 13:57 8 01/20 14:57 Order name: Urine Culture EDMS Administered Medications: No medications were administered Disposition: 18:33 Co-signature as Attending Physician, Gabino Echavarria MD I agree with the assessment and kdr plan of care. Disposition Summary: 01/20/21 15:02 Discharge Ordered Location: Home jr8 Problem: new jr8 Symptoms: are unchanged jr8 Condition: Stable jr8 Diagnosis - Acute cystitis jr8 Followup: jr8 - With: Emily Edwards MD - When: 5 - 6 days - Reason: Recheck today's complaints, Continuance of care, Re-evaluation by your physician Discharge Instructions: - Discharge Summary Sheet jr8 - Urinary Tract Infection, Adult jr8 Forms: - Medication Reconciliation Form jr8 - Thank You Letter jr8 - Antibiotic Education jr8 - Prescription Opioid Use jr8 Prescriptions: - Macrobid 100 mg Oral Capsule - take 1 capsule by ORAL route every 12 hours for 7 days; 14 capsule; Refills: 0, jr8 Product Selection Permitted Signatures: Dispatcher [employer] EDMS Gabino Echavarria MD MD [facility] Aarti Weinstein RN RN aa5 Faustino Godinez PA PA jr8
--- NOTE | 2021-01-20 15:03 | ER ---
Nurse's Notes [facility] Name: Oleg Marie Age: 80 yrs Sex: Male : 1940 Arrival Date: 01/20/2021 Time: 10:25 Bed 13 Private MD: Emily Edwards C Diagnosis: Acute cystitis Presentation: 01/20 11:20 Chief complaint: Patient states: "I had a UTI 2 weeks ago and now I am having the same aa5 symptoms". Pt reports urinary urgency and burning sensation to penis. Pt also reports low grade fever at home up to 100*F. Coronavirus screen: fever. Ebola Screen: Patient negative for fever greater than or equal to 101.5 degrees Fahrenheit, and additional compatible Ebola Virus Disease symptoms. Initial Sepsis Screen: Does the patient meet any 2 criteria? No. Patient's initial sepsis screen is negative. Does the patient have a suspected source of infection? Yes: Dysuria/Frequency/Urgency/UTI. Risk Assessment: Do you want to hurt yourself or someone else? Patient reports no desire to harm self or others. Onset of symptoms was January 2021. 11:20 Method Of Arrival: Ambulatory aa5 11:20 Acuity: REJI 3 aa5 Historical: - Allergies: 11:22 Codeine; hyper; aa5 11:22 Tape; aa5 - PMHx: 11:22 Ankylosing Spondylitis; BPH; aa5 - Immunization history:: Client reports receiving the 2nd dose of the Covid vaccine. - Social history:: Smoking status: Patient denies any tobacco usage or history of. Vital Signs: 11:20 BP 127 / 69; Pulse 88; Resp 18 S; Temp 98.7(O); Pulse Ox 97% on R/A; Weight 83.01 kg aa5 (R); Height 5 ft. 7 in. (170.18 cm) (R); Pain 0/10; 11:20 Body Mass Index 28.66 (83.01 kg, 170.18 cm) aa5 ED Course: 10:25 Patient arrived in ED. am2 10:25 Emily Edwards MD is Private Physician. am2 11:20 Arm band placed on. aa5 11:22 Triage completed. aa5 11:25 Patient placed in waiting room, Patient notified of wait time. aa5 13:39 Ita Nettles, BOWEN is Primary Nurse. tr6 13:39 Faustino Godinez PA is PHCP. jr8 13:39 Gabino Echavarria MD is Attending Physician. jr8 15:01 Emily Edwards MD is Referral Physician. jr8 Administered Medications: No medications were administered Outcome: 15:02 Discharge ordered by . jr8 15:42 Patient left the ED. tr6 Signatures: Aarti Weinstein RN RN aa5 Faustino Godinez PA PA jr8 Valencia Martino formerly [facility] Ita Nettles RN RN tr6
[2021-01-20 16:15] VITALS: BP 127/69; TEMP 98.7; O2SAT 97
== END 2021-01-20 15:42 | disposition home or self-care (01) ==
LOC: ER 10:22
DX: N30.00 Acute cystitis without hematuria (principal); Z88.5 Allergy status to narcotic agent; Z91.048 Other nonmedicinal substance allergy status
CPT/HCPCS: 81003; 81015; 87077; 87086; 87088; 87186; 99281